=== PATIENT | male | born 1970 | race Hispanic/Latino ===

== ENCOUNTER 2016-11-07 12:32 | Emergency (ER) | payer OTHER ==
[~2016-11-07 12:32] MED LIST: BENZ200C44 PO
[2016-11-07 12:55] VITALS: BP 118/75; PULSE 96; RESP 17; O2SAT 95
--- NOTE | 2016-11-07 13:11 | ED.REPORT ---
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 Reports that the pain began several weeks ago, indicating that it is located in his left lower lateral rib area. He indicates it is progressed up into his back and left shoulder, to the point where today it was unbearable and he presented to the emergency department. Admits lower back pain for which he is doing PT and is improving. Denies other symptoms including numbness, tingling in his extremities, shortness of breath, cough, wheeze. Nursing Notes Stated Complaint: RIB PAIN Chief Complaint: Chest Pain-Non Cardiac Nature Nursing Notes Reviewed: Yes Allergies: Coded Allergies: No Known Allergies (Unverified , 11/07/16) Scheduled PRN Cyclobenzaprine (Cyclobenzaprine) 10 Mg Tablet 10 MG PO HS PRN PRN Spasm General Time Seen by MD: 13:06 Chief Complaint Other (left-sided rib pain) Sudden in Onset?: No Past Medical History Past Medical History Healthy Smoking History Never Smoker Ambulatory Status Independent Review of Systems Review of Systems Note: Negative unless stated otherwise in history of present illness Physical Exam General: Well appearing, well developed, well nourished, no acute distress. Shoulders: Symmetrical, nontender to palpation equal range of motion bilaterally Chest: Normal to inspection. Tender over left lower lateral ribs. Head: Atraumatic, normocephalic. Eyes: No scleral icterus or injection. No discharge. Vision grossly intact. ENT: Voice clear, hearing grossly intact. Respiratory: Regular rate and rhythm. Breath sounds present, clear to auscultation and equal bilaterally. Cardiovascular: Regular rate and rhythm, without murmur, gallop or rub. No pedal edema. Gastrointestinal: Abdomen flat and non-tender without guarding or rebound. Bowel sounds normoactive. Skin: Warm and dry. Neurological: Grossly nonfocal. Strength and sensation intact in upper extremity bl Psychological: Alert and oriented. Speech appropriate, linear and logical. Behavior appropriate. Initial Vital Signs Vital Signs (First) Date Time Temp Pulse Resp B/P Pulse Ox O2 Delivery O2 Flow Rate FiO2 11/07/16 12:55 37.3 96 17 118/75 95 Room Air Initial VS: Reviewed, Vital signs normal Interpretation & Diagnostics ECG Interpretation Normal ECG Interpretation: Normal rate, Normal sinus rhythm, No acute ischemic changes, Normal QRS, Normal axis, Normal intervals, No change from prior ECGs, Adequate tracing X-Ray Chest Interpretation Chest Xray Interpretation: PROCEDURE: X-RAY CHEST, TWO VIEWS ([id number]) INDICATIONS: cp IMPRESSION: No acute cardiopulmonary disease. Interpretation / Wet Read by: Interpret - Radiologist Re-Eval/Medical Decision Med Decision/Clinical Course Otherwise healthy 46-year-old male presents with chief complaint of left lateral rib pain. He states he has had pain for several weeks and is becoming worse progressing up into his left shoulder. He reports he works as a meat stocker and does a great deal of repetitive heavy lifting with that arm. He states he has never had this problem before. Chest x-ray is reassuring there is no rib fracture, pneumothorax, pneumonia. EKG is normal. I believe this is most likely a musculoskeletal pain caused by repetitive stress from his work as opposed to a lung or heart issue. No evidence of acute trauma. I offered instructions for [id number] analgesia as well as a prescription for cyclobenzaprine with the caution that he should not use it at work, driving or while drinking alcohol. Provided referral to L&I approved primary care follow-up and gave return precautions. Patient agrees with the plan and is ready for discharge Discharge & Departure Primary Impression: Overuse injury Disposition: Home Discharge Condition All VS Reviewed: Yes Condition: Stable Additional Instructions: Evaluation for left-sided rib pain in the emergency department. He did number of tests to see if this might be pain caused by your heart or lungs, and we do not believe that it is. Most likely this is musculoskeletal pain related to the heavy lifting you do at your job. I advise that he will rest for several days. If this is not possible, try to arrange either light duty at work or a different job that uses that shoulder less. The pain is best treated with 400 mg of ibuprofen (Advil, Motrin) every 6 hours, or 1000 mg of acetaminophen ( Tylenol) every 6 hours. These drugs can be taken at the same time for more severe pain. I will also prescribe a small amount of muscle relaxants. These are mostly to be used at night to help you sleep. They are sedatives and potentially dangerous to use at work, while driving or drinking alcohol. I will provide to referral to an L&I approved primary care provider who can monitor your progress and arrange physical therapy. Please contact them tomorrow to arrange follow-up in the next 2 or 3 days. Return to emergency department for new or worsening symptoms including worsening pain in your chest, difficulty breathing. Evaluacion para dolor de la jamar lado jhonny en el departamento de emergencia. Se hizo varios estudios para matti si shannon dolor esta' causado por paige akira o pulmones, y no creemos que es por eso. A lo mejor es dolor musculoeskeletal relacionado a que levanta pesado que Ud. hace en paige trabajo. Yo aconsejo que el descansa por various justice. Si eso no es posible, trata de que le den trabajo liviano en el trabajo u otro trabajo que use el hombro menos. El dolor se trata mejor con 400mg de ibuprofen(Advil, Motrin) cada 6 horas, o 1000 mg of acetaminofen(Tylenol) cada 6 horas. Estas drogas pueden tomarse al mismo tiempo para dolor mas sandhya. Tambien voy a recetar danny pequena cantidad de relajante de musculos. Esos son mas para usar en la noche para ayudarle dormir. Son sedantes y potentialmente peligrosos usar en el trabajo, mientras que maneje o tomando alcohol. Le voy a proveer danny referencia a danny doctor de cabecera aprobado por L&I quien puede seguir paige progreso y hacer arreglos para terapia fisica. Por favor ponerse en contacto con ellos para arreglar seguimiento en los proximos 2 a 3 justice. Regrese al departamento de emergencia para sintimas nuevas o empeorandose, incluyendo dolor peor en paige pecho, dificultad al respirar. Referrals: Chava Granados MD EDSupervising Provider for APC: Fran Mena MD Attending Statement Attending attestation: I saw this patient in conjunction with Ghassan López PA-C. Patient was discussed in detail and I agree with the workup, evaluation, treatment and disposition. Fran Mena MD copies to: Chava Granados MD; Ashlee Owens MD, Beck O MD Nov 07, 2016 13:11 Ghassan López PA-C Nov 07, 2016 14:28
--- NOTE | 2016-11-07 13:59 | DRSVH ---
PROCEDURE: X-RAY CHEST, TWO VIEWS ([id number]) INDICATIONS: cp TECHNIQUE: 2 views of the chest were acquired. COMPARISON: [facility], CR, XR CHEST 2VW, 06/08/2016, 22:42. FINDINGS: Surgical changes and devices: None. Lungs and pleura: No pleural effusions or pneumothorax. Lungs are clear. Mediastinum: Mediastinal contours are normal. Heart size is normal. Bones and chest wall: No suspicious bony abnormalities. Soft tissues appear unremarkable. IMPRESSION: No acute cardiopulmonary disease. Dictated by: [facility] Interpreted: Cassi Amado MD on 11/07/2016 at 13:53 Transcribed by: SYMONE on 11/07/2016 at 13:58 Approved by: Cassi Amado MD, PhD on 11/07/2016 at 17:01
[2016-11-07] MEDS ORDERED: CYCL10TA9 PO (14:41)
[2016-11-07 15:08] VITALS: BP 119/76; PULSE 66; RESP 16; O2SAT 97
== END 2016-11-07 15:09 | disposition home or self-care (01) ==
LOC: SED 12:32
DX: S29.8XXA Other specified injuries of thorax, initial encounter (principal); X50.3XXA Overexertion from repetitive movements, initial encounter; Y93.89 Activity, other specified; Y92.69 Other specified industrial and construction area as the place of occurrence of the external cause; Y99.0 Civilian activity done for income or pay; M54.5 Low back pain